=== PATIENT | female | born 1995 | race Caucasian/White ===

== ENCOUNTER 2021-05-07 14:54 | Outpatient (CLI) | payer BC, SELFPAY ==
[2021-05-07 15:30] LABS: Hematocrit 41.7 % (37.0-47.0); Hemoglobin 13.9 g/dL (12.0-15.0); Mean Corpuscular HGB Conc 33.3 g/dl (32-36); Mean Corpuscular Hemoglobin 32.5 pg (26-34); Mean Corpuscular Volume 97.4 fl (80-100); Mean Platelet Volume 8.7 fl (7.4-10.4); Platelet Count Result 312 k/mm3 (150-375); Red Blood Count 4.28 M/mm3 (4.2-5.4); Red Cell Distribution Width 11.6 % (11.5-14.5)
[2021-05-07 15:46] LABS: Alanine Aminotransferase 12 U/L (4-35); Albumin Level 4.7 g/dL (3.5-5.1); Alkaline Phosphatase 70 U/L (38-126); Anion Gap 9 mmol/L (8-16); Aspartate Amino Transferase 24 U/L (14-36); Bilirubin,Total 0.7 mg/dL (0.2-1.3); Blood Urea Nitrogen 14 mg/dL (7-17); Calcium 9.5 mg/dL (8.4-10.2); Carbon Dioxide 26 mmol/L (22-30); Chloride 104 mmol/L (98-107); Estimated Glomerular Filt Rate > 60; Glucose 91 mg/dL (65-110); Potassium 3.4 mmol/L (3.4-5.0); Sodium 139 mmol/L (137-145)
[2021-05-15 20:08] LABS: Calprotectin, Stool 166 mcg/g
== END 2021-05-07 14:55 | disposition home or self-care (01) ==
LOC: ANHLAB 14:58
PROVIDERS: PCP Emergency Medicine; Visit Provider Internal Medicine Gastroenterology
DX: K50.90 Crohn's disease, unspecified, without complications (principal)
CPT/HCPCS: 36415; 80053; 83993; 85027

== ENCOUNTER 2021-11-11 13:40 | Outpatient (CLI) | payer BC, SELFPAY ==
[2021-11-11 14:26] LABS: Hematocrit 41.4 % (37.0-47.0); Hemoglobin 13.8 g/dL (12.0-15.0); Mean Corpuscular HGB Conc 33.3 g/dl (32-36); Mean Corpuscular Hemoglobin 32.6 pg (26-34); Mean Corpuscular Volume 97.9 fl (80-100); Mean Platelet Volume 8.6 fl (7.4-10.4); Platelet Count Result 308 k/mm3 (150-375); Red Blood Count 4.23 M/mm3 (4.2-5.4); Red Cell Distribution Width 11.9 % (11.5-14.5); White Blood Count 8.4 K/mm3 (4.5-10.0)
[2021-11-11 14:55] LABS: CRP < 0.5 mg/dL (<1.0)
== END 2021-11-11 13:41 | disposition home or self-care (01) ==
DX: K50.90 Crohn's disease, unspecified, without complications (principal)
CPT/HCPCS: 36415; 85027; 86140

== ENCOUNTER 2021-11-16 14:31 | Outpatient (CLI) | payer BC, SELFPAY ==
[2021-11-21 23:04] LABS: Calprotectin, Stool 99 mcg/g
[2021-11-23 19:46] LABS: Lactoferrin, Stool Negative (Negative)
== END 2021-11-16 14:32 | disposition home or self-care (01) ==
LOC: ANHLAB 14:34
PROVIDERS: Visit Provider Internal Medicine Gastroenterology
DX: K50.90 Crohn's disease, unspecified, without complications (principal)
CPT/HCPCS: 83630; 83993

== ENCOUNTER 2022-11-30 10:49 | Outpatient (CLI) | payer BC, SELFPAY ==
[2022-11-30 11:28] LABS: Basophils Percent Auto 0.5 % (0.2-1.2); Eosinophils Absolute Auto 0.1 K/mm3 (0-0.3); Eosinophils Percent Auto 1.1 % (0-4.4); Hematocrit 44.9 % (37.0-47.0); Hemoglobin 14.6 g/dL (12.0-15.0); Immature Granulocyte Absolute 0.02 K/mm3 (0.00-0.031); Immature Granulocyte Percent A 0.3 % (0-0.5); Lymphocytes Absolute Auto 2.24 K/mm3 (0.9-3.2); Lymphocytes Percent Auto 29.6 % (18.3-44.2); Mean Corpuscular HGB Conc 32.5 g/dl (32-36); Mean Corpuscular Hemoglobin 31.4 pg (26-34); Mean Corpuscular Volume 96.6 fl (80-100); Mean Platelet Volume 8.7 fl (7.4-10.4); Monocytes Absolute Auto 0.4 K/mm3 (0.1-0.6); Monocytes Percent Auto 5.5 % (2.6-8.5); Neutrophils Absolute Auto 4.8 K/mm3 (1.3-6.7); Platelet Count Result 307 k/mm3 (150-375); Red Blood Count 4.65 M/mm3 (4.2-5.4); Red Cell Distribution Width 11.8 % (11.5-14.5); White Blood Count 7.6 K/mm3 (4.5-10.0)
[2022-11-30 11:46] LABS: Alanine Aminotransferase 42 U/L (6-35); Alkaline Phosphatase 85 U/L (38-126); Anion Gap 7 mmol/L (8-16); Aspartate Amino Transferase 32 U/L (14-36); Bilirubin,Total 0.8 mg/dL (0.2-1.3); Blood Urea Nitrogen 12 mg/dL (7-17); Calcium 9.2 mg/dL (8.4-10.2); Carbon Dioxide 27 mmol/L (22-30); Chloride 103 mmol/L (98-107); Cholesterol 162 mg/dL (0-200); Estimated Glomerular Filt Rate > 60; Glucose 108 mg/dL (65-110); HDL Direct 65 mg/dL; Potassium 3.8 mmol/L (3.4-5.0); Sodium 137 mmol/L (137-145); Triglycerides 45 mg/dL (<150)
[2022-11-30 11:57] LABS: LDL Cholesterol Direct 77 mg/dL
[2022-11-30 12:12] LABS: Lithium 0.8 mmol/L (0.6-1.2)
[2022-11-30 12:15] LABS: Hemoglobin A1C 4.4 % (<5.7)
[2022-11-30 12:34] LABS: Vitamin D 25 Hydroxy 33.2 ng/mL
== END 2022-11-30 10:50 | disposition home or self-care (01) ==
PROVIDERS: Visit Provider Nurse Practitioner Psychiatric/Mental Health
DX: F41.1 Generalized anxiety disorder (principal); F31.62 Bipolar disorder, current episode mixed, moderate; Z79.899 Other long term (current) drug therapy; F51.01 Primary insomnia; K50.90 Crohn's disease, unspecified, without complications; K21.9 Gastro-esophageal reflux disease without esophagitis; G43.909 Migraine, unspecified, not intractable, without status migrainosus
CPT/HCPCS: 36415; 80053; 80061; 80178; 82306; 82746; 83036; 84443; 85025

== ENCOUNTER 2023-09-27 14:39 | Emergency (ER) | payer MEDICAID, SELFPAY ==
[2023-09-27 14:40] VITALS: BP 147/99; PULSE 110; RESP 16; TEMP 36.8; O2SAT 100
--- NOTE | 2023-09-27 15:12 | ED.GENADULT ---
HPI - General Adult General Chief complaint: Recheck/Abnormal Lab/Rx Stated complaint: Preg test Time Seen by Provider: 09/27/23 15:12 Source: patient Mode of arrival: ambulatory Limitations: no limitations History of Present Illness HPI narrative: This is a 28-year-old female who presents to the ED for a test. Reports she is 8 days late on her normal menstrual cycle. She took 2- home tests but wants a confirmatory tests here. States she is unable to get refills on her medications until she has this confirmed. Currently asymptomatic. Related Data Allergies Allergy/AdvReac Type Severity Reaction Status Date / Time ANTIBIOTIC Allergy Unknown BLACKED OUT Uncoded 07/10/18 18:07 Review of Systems Review of Systems: All systems as dictated in HPI Exam Narrative: GENERAL: Well-appearing, well-nourished, and in no acute distress. HEAD: Normocephalic, atraumatic. EYES: PERRLA and EOMI. MSK: Normal range of motion. No edema. SKIN: Warm, dry, no rash. NEURO: Alert and oriented x3. No focal deficits. PSYCH: Normal mood and affect. Course Vital Signs Vital signs: Vital Signs Temperature 98.2 F 09/27/23 14:40 Pulse Rate 110 H 09/27/23 14:40 Respiratory Rate 16 09/27/23 14:40 Blood Pressure 147/99 H 09/27/23 14:40 Pulse Oximetry 100 09/27/23 14:40 Oxygen Delivery Room Air 09/27/23 14:40 Temperature 98.2 F 09/27/23 14:40 Pulse Rate 110 H 09/27/23 14:40 Respiratory Rate 16 09/27/23 14:40 Blood Pressure 147/99 H 09/27/23 14:40 Pulse Oximetry 100 09/27/23 14:40 Oxygen Delivery Room Air 09/27/23 14:40 Medical Decision Making MDM Narrative Medical decision making narrative: This is a 28-year-old female presenting to the ER for test. 2- home test but once confirmatory test. She is seeking this so that she can tell her psychiatrist that she is not . She needs this for refills for lithium and Ativan. Vitals are normal. Exam is normal. Urine test negative. Pt will be discharged in stable condition. Return precautions given and supportive measures discussed. Pt is understanding and agreeable with plan for discharge and follow-up with PCP. Vital Signs Vital Signs: Vital Signs Temperature 98.2 F 09/27/23 14:40 Pulse Rate 110 H 09/27/23 14:40 Respiratory Rate 16 09/27/23 14:40 Blood Pressure 147/99 H 09/27/23 14:40 Pulse Oximetry 100 09/27/23 14:40 Oxygen Delivery Room Air 09/27/23 14:40 Temperature 98.2 F 09/27/23 14:40 Pulse Rate 110 H 09/27/23 14:40 Respiratory Rate 16 09/27/23 14:40 Blood Pressure 147/99 H 09/27/23 14:40 Pulse Oximetry 100 09/27/23 14:40 Oxygen Delivery Room Air 09/27/23 14:40 Lab Data Labs: UCG Bedside Result Negative Reference Range: Negative Discharge Plan Discharge Clinical Impression: test negative Patient Disposition: Home, Self-Care Condition: Stable Instructions: Antibiotic Form Additional Instructions: Your urine test is negative. Follow-up with your doctor as scheduled. Follow-up/Referrals: UNKNOWN,DOCTOR [Primary Care Provider] - Time of Disposition: 15:14
[2023-09-27 15:35] VITALS: BP 115/73; PULSE 65; RESP 16; TEMP 36.8; O2SAT 100
== END 2023-09-27 15:23 | disposition home or self-care (01) ==
LOC: ANHED 15:23
PROVIDERS: Emergency Provider Physician Assistant
DX: Z32.02 Encounter for pregnancy test, result negative (principal)
CPT/HCPCS: 81025; 99283